=== PATIENT | male | born 1975 | race Caucasian/White ===

== ENCOUNTER 2017-09-07 16:00 | Emergency (ER) | payer OTHER ==
[2017-09-07 16:07] VITALS: BP 132/84
--- NOTE | 2017-09-07 16:43 | ER Document Report ---
HPI - HPI Patient complains to provider of: Knee injury Onset: This afternoon Onset/Duration: Persistent Pain Level: 3 Context: 42-year-old male was mowing in a ditch and felt a pop and a crack 3 times and has been unable to lift his lower leg and got knee swelling immediately. He has a history of 3 previous surgeries and a partial torn Achilles tendon that was found 1 month ago. The MRI that showed a partially torn Achilles was from 1 year ago. It was not until the injury today that he was not able to elevate his lower leg. He has an appointment on September [address] Cabrera who is in [facility] surgery group to repair or investigate the Achilles tendon. Associated Symptoms: None Exacerbated by: Denies Relieved by: Denies - ROS ROS below otherwise negative: Yes Systems Reviewed and Negative: Yes All other systems reviewed and negative Past Medical History - General Information source: Patient - Social History Smoking Status: Former Smoker Frequency of alcohol use: None Drug Abuse: None Lives with: Spouse/Significant other Family History: Reviewed & Not Pertinent Musculoskeltal Medical History: Reports Hx Musculoskeletal Trauma - Left knee Past Surgical History: Reports: Hx Orthopedic Surgery - 3 orthopedic no surgeries in the past Vertical Provider Document - CONSTITUTIONAL Agree With Documented VS: Yes Exam Limitations: No Limitations - INFECTION CONTROL TRAVEL OUTSIDE OF THE [place] IN LAST 30 DAYS: No - MUSCULOSKELETAL/EXTREMETIES Musculoskeletal/Extremeties: Tender - Anterior left knee with a defect noted at the patellar tendon. He is unable to lift his lower leg off the chair. 2+ DP. Effusion and swelling anterior left knee, Edema, Eccymosis - NEURO Level of Consciousness: Alert Motor/Sensory: No Sensory Deficit, Other - Unable to lift his left leg up off the wheelchair indicating patellar tendon dysfunction Course - Re-evaluation Re-evalutation: 09/07/17 17:[address] Montiel to consult with him, pin ticket machine operator left a message. The patient has an orthopedic appointment for preop on September [address] Cabrera in [place]. The surgery is scheduled for October 03. 09/07/17 17:43 Dr. Montiel will be happy to see the patient on Friday and call for an appointment tomorrow or he can try to see Dr. Cabrera. Dr. Montiel recommends knee immobilizer and crutches. Patient states that the hydrocodone 10 mg did not help and he does not want a prescription for any other pain medication. 09/07/17 17:43 - Vital Signs Vital signs: Temp Pulse Resp BP Pulse Ox 98.0 F 91 18 132/84 H 96 09/07/17 16:06 09/07/17 16:06 09/07/17 16:06 09/07/17 16:06 09/07/17 16:06 Procedures - Immobilization Left Knee Time completed: 18:10 Pre-Proc Neuro Vasc Exam: Normal Immobilizer type: Knee immobilizer Performed by: PCT Post-Proc Neuro Vasc Exam: Normal Alignment checked and good: Yes Discharge - Discharge Clinical Impression: Left knee effusion Patellar tendon rupture Qualifiers: Encounter type: initial encounter Laterality: left Qualified Code(s): S86.812A - Strain of other muscle(s) and tendon(s) at lower leg level, left leg, initial encounter Condition: Good Disposition: HOME, SELF-CARE Instructions: Acetaminophen, Use of Crutches ([facility]), Ibuprofen (General) ([facility]), Ice & Elevation ([facility]), Suspected Internal Knee Injury ([facility]), Knee Effusion ([facility]) , Knee Immobilizing Splint ([facility]) Additional Instructions: It is suspected that she have a full rupture of the patellar tendon at this time Keep the knee immobilizer on Do not bear weight use crutches Call for appointment with Dr. Cabrera this week or you can see Dr. Montiel on Friday I spoke with him over the phone Ibuprofen and Tylenol for pain. Prescriptions: Hydrocodone Bit/Acetaminophen [Hydrocodon-Acetaminophen 5-325] 1 each PO Q4HP PRN #15 tablet PRN Reason: Ibuprofen [Motrin 800 mg Tablet] 800 mg PO Q8HP PRN #30 tablet PRN Reason: Referrals: NELLY OLVERA PA [Primary Care Provider] - Follow up as needed
--- NOTE | 2017-09-07 16:47 | RADIOLOGY REPORT (SQ) ---
EXAM DESCRIPTION: KNEE LEFT 4 VIEW COMPLETED DATE/TIME: 09/07/2017 4:35 pm REASON FOR STUDY: inury COMPARISON: None. NUMBER OF VIEWS: Four views. TECHNIQUE: AP, lateral, and both oblique radiographic images acquired of the left knee. LIMITATIONS: Suboptimal flexion on the lateral radiograph. FINDINGS: MINERALIZATION: Normal. BONES: No acute fracture or dislocation. No worrisome bone lesions. JOINT: A small joint effusion is present. SOFT TISSUES: Prepatellar soft tissue edema is present. OTHER: No other significant finding. IMPRESSION: Small joint effusion and prepatellar soft tissue edema. No evidence of acute osseous in jury. TECHNICAL DOCUMENTATION: JOB ID: [id number] [employer]- All Rights Reserved Reading location - IP/workstation name: [email or web address]
[2017-09-07] MEDS ORDERED: HYDROCODONE/ACETAMINOPHEN 10-325 MG TABLET PO ONE (16:54)
[2017-09-07] MEDS ORDERED: ONDANSETRON 4 MG TAB.RAPDIS PO ONE (16:54)
== END 2017-09-07 18:19 | disposition home or self-care (01) ==
LOC: ER 16:00
DX: S86.812A Strain of other muscle(s) and tendon(s) at lower leg level, left leg, initial encounter (principal); M25.462 Effusion, left knee; X50.0XXA Overexertion from strenuous movement or load, initial encounter; Y93.H2 Activity, gardening and landscaping
CPT/HCPCS: 99283; 73564; L1830; S0119

== ENCOUNTER → 2017-10-10 | Outpatient (CLI) | payer OTHER ==
--- NOTE | 2017-10-12 09:54 | RADIOLOGY REPORT (SQ) ---
EXAM DESCRIPTION: MRI LT LOWER JOINT WITHOUT COMPLETED DATE/TIME: 10/10/2017 7:22 pm REASON FOR STUDY: PAIN IN LEFT KNEE M25.562 PAIN IN LEFT KNEE COMPARISON: None. TECHNIQUE: Leftknee images acquired and stored on PACS. Multiplanar images include fat sensitive se quences as T1, water sensitive sequences as FST2 or STIR, cartilage sensitive sequences as FSPD, and gradient echo sequences. LIMITATIONS: Motion. FINDINGS: JOINT AND BURSAE: No effusion. BONE CORTEX AND MARROW: No alteration of signal to suggest marrow replacement. No worrisome bone lesi ons. No occult fracture. ACL: Intact. No degeneration or ganglion cyst. PCL: Intact. MCL: Intact. No periligamentous edema or fluid. LCL: Intact. No periligamentous edema or fluid. MEDIAL MENISCUS: Attenuated. No acute tear. LATERAL MENISCUS: Attenuated. No acute tear. MEDIAL COMPARTMENT: Cartilage thinning. Small osteophytes. No subchondral edema. LATERAL COMPARTMENT: Cartilage preserved. No bone bruises or reactive marrow edema. No osteophytes. PATELLA: Patella Alice. Small avulsion fracture of the inferior pole. Rupture of the patellar tendon with a gap of roughly 2 cm. EXTENSOR MECHANISM: See above. Increased signal in the quadriceps tendon. SOFT TISSUES: Several loose bodies in the posterior joint space with blooming artifact. OTHER: No other significant finding. IMPRESSION: 1. Rupture of the patellar tendon. Small avulsion fracture inferior pole of patella. Tendinosis dis elías quadriceps tendon. 2. Synovial chondromatosis posterior joint space. 3. Mild osteoarthritis medial compartment. TECHNICAL DOCUMENTATION: JOB ID: [id number] [employer]- All Rights Reserved Reading location - IP/workstation name: [email or web address]
== END ==
LOC: RAD 16:28
PROVIDERS: ATTEND Physician Assistant Medical
DX: M25.562 Pain in left knee (principal)

== ENCOUNTER 2019-07-17 23:33 | Observation (INO) | payer OTHER ==
--- NOTE | 2019-07-17 23:59 | ER Document Report ---
ED Medical Screen (RME) - General Chief Complaint: Lower Abdominal Pain Stated Complaint: LOWER RIGHT SIDED ABDOMINAL PAIN/VOMITING Time Seen by Provider: 07/17/19 23:57 Primary Care Provider: NELLY OLVERA PA [Primary Care Provider] - Follow up as needed Mode of Arrival: Wheelchair Information source: Patient Notes: 43-year-old male presented to ED for rebound right tenderness to the abdomen. He states this started about 6 hours ago. He is afebrile at this time. He does have generalized abdominal pain much worse to the right lower quadrant. He states he does still have his appendix. He is nauseated states he is vomited one time. I have greeted and performed a rapid initial assessment of this patient. A comprehensive ED assessment and evaluation of the patient, analysis of test results and completion of medical decision making process will be conducted by an additional ED providers. TRAVEL OUTSIDE OF THE [place] IN LAST 30 DAYS: No - Related Data Allergies/Adverse Reactions: No Known Allergies Allergy (Unverified 09/07/17 16:01) Past Medical History Pulmonary Medical History: Reports: Hx Asthma Renal/ Medical History: Denies: Hx Peritoneal Dialysis GI Medical History: Reports: Hx Gastroesophageal Reflux Disease Musculoskeltal Medical History: Reports Hx Musculoskeletal Trauma - Left knee Past Surgical History: Reports: Hx Orthopedic Surgery - 3 orthopedic no surgeries in the past Doctor's Discharge - Discharge Referrals: NELLY OLVERA PA [Primary Care Provider] - Follow up as needed
[2019-07-18] MEDS ORDERED: ONDANSETRON HCL INJ/PF 4 MG/2 ML SDV IV ONE
[2019-07-18] MEDS ORDERED: MORPHINE SULFATE 10 MG/ML INJ IV ONE
[2019-07-18] MEDS ORDERED: NORMAL SALINE 1000 ML 1,000 ML IV ONE
[2019-07-18 00:39] LABS: ABSOLUTE BASOPHILS # (AUTO) 0.1 10^3/uL (0.0-0.2); ABSOLUTE EOSINOPHILS # (AUTO) 0.1 10^3/uL (0.0-0.6); ABSOLUTE LYMPHOCYTES (AUTO) 1.5 10^3/uL (0.5-4.7); ABSOLUTE MONOCYTES (AUTO) 0.9 10^3/uL (0.1-1.4); ABSOLUTE NEUT (AUTO) 13.2 10^3/uL (1.7-8.2); BASOPHILS % (AUTO) 0.5 % (0-2); EOSINOPHILS % (AUTO) 0.9 % (0-6); HEMATOCRIT 47.1 % (37.9-51.0); HEMOGLOBIN 16.3 g/dL (13.5-17.0); LYMPHOCYTES % (AUTO) 9.7 % (13-45); MEAN CORPUSCULAR HEMOGLOBIN 29.4 pg (27.0-33.4); MEAN CORPUSCULAR HGB CONC 34.6 g/dL (32.0-36.0); MEAN CORPUSCULAR VOLUME 85 fl (80-97); MONOCYTES % (AUTO) 5.5 % (3-13); PLATELET COUNT 240 10^3/uL (150-450); RED BLOOD COUNT 5.54 10^6/uL (4.35-5.55); RED CELL DISTRIBUTION WIDTH 13.2 % (11.5-14.0); SEGMENTED NEUTROPHILS % (AUTO) 83.4 % (42-78); TOTAL CELLS COUNTED % (AUTO) 100 %; WHITE BLOOD COUNT 15.8 10^3/uL (4.0-10.5)
[2019-07-18 00:56] LABS: ALBUMIN 4.8 g/dL (3.5-5.0); ALKALINE PHOSPHATASE 83 U/L (38-126); ANION GAP 6 (5-19); ASPARTATE AMINO TRANSFERASE 29 U/L (17-59); BILIRUBIN,TOTAL 0.5 mg/dL (0.2-1.3); BLOOD UREA NITROGEN 18 mg/dL (7-20); CALCIUM 10.4 mg/dL (8.4-10.2); CARBON DIOXIDE 30 mmol/L (22-30); CHLORIDE 101 mmol/L (98-107); GLUCOSE 122 mg/dL (75-110); POTASSIUM 4.3 mmol/L (3.6-5.0); TOTAL PROTEIN 7.8 g/dL (6.3-8.2)
[2019-07-18] MEDS ORDERED: HYDROMORPHONE HCL INJ/PF 2 MG/ML AMPULE IV ONE (01:05)
--- NOTE | 2019-07-18 01:11 | ER Document Report ---
Entered by DEEDEE MOTT SCRIBE 07/18/19 0100 Acting as scribe for:SADIA LEWIS IV, MD ED GI/ - General Chief Complaint: Abdominal Pain Stated Complaint: LOWER RIGHT SIDED ABDOMINAL PAIN/VOMITING Time Seen by Provider: 07/17/19 23:57 Primary Care Provider: NELLY OLVERA PA [Primary Care Provider] - Follow up as needed Mode of Arrival: Wheelchair Information source: Patient Notes: This 43 year old male patient presents to the ED today with complaints of RLQ abdominal pain that started around 1900 last evening. Patient states that after eating dinner, he felt the pain in his RLQ and that it radiated to his back. He reports a past medical history of kidney stones, but states that this feels different. He notes nausea and x1 episode of vomiting. Denies diarrhea. TRAVEL OUTSIDE OF THE [place] IN LAST 30 DAYS: No - Related Data Allergies/Adverse Reactions: No Known Allergies Allergy (Unverified 09/07/17 16:01) Home Medications: trazodone Past Medical History - General Information source: Patient - Social History Smoking Status: Never Smoker Cigarette use (# per day): No Chew tobacco use (# tins/day): No Smoking Education Provided: No Frequency of alcohol use: None Drug Abuse: None Lives with: Spouse/Significant other Family History: Reviewed & Not Pertinent Patient has suicidal ideation: No Patient has homicidal ideation: No Pulmonary Medical History: Reports: Hx Asthma Renal/ Medical History: Reports: Hx Kidney Stones GI Medical History: Reports: Hx Gastroesophageal Reflux Disease Musculoskeletal Medical History: Reports Hx Musculoskeletal Trauma - Left knee Past Surgical History: Reports: Hx Cholecystectomy, Hx Orthopedic Surgery - x3 Review of Systems - Review of Systems Constitutional: No symptoms reported EENT: No symptoms reported Cardiovascular: No symptoms reported Respiratory: No symptoms reported Gastrointestinal: See HPI, Abdominal pain, Nausea, Vomiting. denies: Diarrhea Genitourinary: No symptoms reported Male Genitourinary: No symptoms reported Musculoskeletal: See HPI, Back pain Skin: No symptoms reported Hematologic/Lymphatic: No symptoms reported Neurological/Psychological: No symptoms reported -: Yes All other systems reviewed and negative Physical Exam - Vital signs Vitals: Temp 98.6 F 07/17/19 23:53 Interpretation: Normal - General General appearance: Alert In distress: None - HEENT Head: Normocephalic, Atraumatic Eyes: Normal Pupils: PERRL - Respiratory Respiratory status: No respiratory distress Chest status: Nontender Breath sounds: Normal Chest palpation: Normal - Cardiovascular Rhythm: Regular Heart sounds: Normal auscultation Murmur: No Friction rub: No Gallop: None auscultated - Abdominal Inspection: Normal Distension: No distension Bowel sounds: Hypoactive Tenderness: Tender - Tenderness to palpation in RLQ and LLQ Organomegaly: No organomegaly - Back Back: Normal, Nontender. No: CVA tenderness - bilaterally - Extremities General upper extremity: Normal inspection General lower extremity: Normal inspection - Neurological Neuro grossly intact: Yes Orientation: AAOx4 - Psychological Associated symptoms: Normal affect, Normal mood - Skin Skin Temperature: Warm Skin Moisture: Dry Skin Color: Normal Course - Re-evaluation Re-evalutation: 07/18/19 01:49 Results of ED MSE discussed with patient. Diagnosis of appendicitis, need for admission and surgical treatment discussed with patient. All questions were answered. - Vital Signs Vital signs: Temp Pulse Resp BP Pulse Ox 98.6 F 62 18 164/96 H 98 07/17/19 23:58 07/17/19 23:58 07/17/19 23:58 07/17/19 23:58 07/17/19 23:58 - Laboratory Result Diagrams: 07/18/19 00:30 07/18/19 00:30 Laboratory results interpreted by me: 07/18/19 07/18/19 00:30 00:30 WBC 15.8 H Lymph % (Auto) 9.7 L Absolute Neuts (auto) 13.2 H Seg Neutrophils % 83.4 H Sodium 136.8 L Glucose 122 H Calcium 10.4 H - Diagnostic Test Radiology reviewed: Reports reviewed - Consults dr. reis Time consulted: 02:20 - dr reis agreed to see pt in ed Reason for consultation: 07/18/19 03:11 acute appendicitis Consulted provider: will come to ER Discharge - Discharge Clinical Impression: Acute appendicitis Qualifiers: Acute appendicitis type: unspecified acute appendicitis type Qualified Code(s): K35.80 - Unspecified acute appendicitis Condition: Good Disposition: ADMITTED OBSERVATION Admitting Provider: Surgicalist - dr reis Unit Admitted: Surgical Floor Referrals: NELLY OLVERA PA [Primary Care Provider] - Follow up as needed I personally performed the services described in the documentation, reviewed and edited the documentation which was dictated to the scribe in my presence, and it accurately records my words and actions.
--- NOTE | 2019-07-18 01:26 | RADIOLOGY REPORT (SQ) ---
CT ABDOMEN AND PELVIS WITH INTRAVENOUS CONTRAST: 07/18/2019 12:21 AM CDT HISTORY: 43-year old with right lower quadrant abdominal pain. COMPARISON: None available TECHNIQUE: Axial contiguous images were obtained from the lung bases to the proximal femurs with intravenous intravenous contrast administered. Sagittal and coronal reconstructions were also obtained and reviewed. This exam was performed according to our departmental dose-optimization program, which includes automated exposure control, adjustment of the mA and/or KV according to the patient's size and/or use of iterative reconstruction technique. FINDINGS: No focal consolidative airspace opacities are seen. No discrete pleural effusion is seen. The visualized hepatic parenchyma is unremarkable. No focal enhancing lesion is seen. The gallbladder is surgically absent. The spleen, pancreas, and adrenals are normal in size and contour. The kidneys demonstrate no evidence of hydronephrosis. Bladder is minimally distended, but grossly appears unremarkable. The stomach is not well distended. The small bowel loops appear unremarkable. No pericolonic inflammatory stranding is seen. The appendix is prominent measures at least 8 mm with adjacent inflammatory stranding. This could represent evidence of acute appendicitis. There is no evidence of pneumoperitoneum or free fluid. The aorta and IVC appear normal in size. No significantly enlarged lymph nodes are seen in the abdomen or pelvis. Review of the bone show no evidence of any suspicious lytic or blastic lesions. IMPRESSION: The appendix is enlarged with adjacent stranding, which can be seen with acute appendicitis. The terminal ileum is also seen nearby.
[2019-07-18] MEDS ORDERED: PIPERACILLIN/TAZOBACTAM 3.375 GM VIAL IV ONE (01:47)
[2019-07-18] MEDS ORDERED: ONDANSETRON HCL INJ/PF 4 MG/2 ML SDV IV PRN ×2 (02:26→09:01)
[2019-07-18] MEDS ORDERED: MORPHINE SULFATE 10 MG/ML INJ IV PRN (02:26)
[2019-07-18] MEDS ORDERED: DEXTROSE 5%-LACTATED RINGERS 1,000 ML IV PRN (02:26)
[2019-07-18] MEDS ORDERED: PIPERACILLIN/TAZOBACTAM 3.375 GM VIAL IV PRN (03:00)
[2019-07-18] MEDS: PIPERACILLIN SODIUM/TAZOBACTAM 3.375 GM in NORMAL SALINE 100 ML IV SCH ×2 (03:22→08:50)
--- NOTE | 2019-07-18 04:02 | PDOC H&P ---
History of Present Illness Admission Date/PCP: 07/18/19 03:30 JOSEPH ROMERO Patient complains of: Severe right lower quadrant pain History of Present Illness: SHILPI OREILLY is a 43 year old male with a 1 day history of sharp, stabbing, severe right lower quadrant pain that began in the periumbilical position, and moved to the right lower quadrant. His pain was rated 8 out of 10 at its worst. Narcotic pain medications make it better, movement and palpation made it worse. The patient denies fevers or chills. He does report some nausea, without vomi ting. His pain does not radiate. At present, the patient denies chest pain, shortness of breath, headache, blurry vision, dizziness, orthostasis, rash, pruritus. Past Medical History Pulmonary Medical History: Reports: Asthma GI Medical History: Reports: Gastroesophageal Reflux Disease Past Surgical History Past Surgical History: Reports: Cholecystectomy, Orthopedic Surgery - x3 Social History Lives with: Spouse/Significant other Smoking Status: Never Smoker Electronic Cigarette use?: No Family History Family History: Reviewed & Not Pertinent Parental Family History Reviewed: Yes Children Family History Reviewed: Yes Sibling(s) Family History Reviewed.: Yes Medication/Allergy Home Medications: Hydrocodone Bit/Acetaminophen [Hydrocodon-Acetaminophen 5-325] 1 each PO Q4HP PRN #15 tablet 09/07/17 Ibuprofen [Motrin 800 mg Tablet] 800 mg PO Q8HP PRN #30 tablet 09/07/17 Allergies/Adverse Reactions: No Known Allergies Allergy (Unverified 09/07/17 16:01) Review of Systems Constitutional: ABSENT: anorexia, chills, fatigue, fever(s), weakness Eyes: ABSENT: visual disturbances Ears: ABSENT: hearing changes Nose, Mouth, and Throat: ABSENT: sore throat Cardiovascular: ABSENT: chest pain Respiratory: ABSENT: cough, dyspnea Genitourinary: ABSENT: dysuria Musculoskeletal: ABSENT: back pain Integumentary: ABSENT: pruritus, rash Neurological: ABSENT: confusion, convulsions, dizziness Psychiatric: ABSENT: anxiety, depression Endocrine: ABSENT: cold intolerance, heat intolerance Hematologic/Lymphatic: ABSENT: easy bleeding, easy bruising Physical Exam Vital Signs: Temp Pulse Resp BP Pulse Ox 98.6 F 62 17 135/89 H 95 07/17/19 23:58 07/17/19 23:58 07/18/19 03:01 07/18/19 03:01 07/18/19 03:01 Intake & Output 07/16/19 07/17/19 07/18/19 06:59 06:59 06:59 Intake Total 1000 Balance 1000 Weight 95.254 kg General appearance: PRESENT: no acute distress, cooperative Head exam: PRESENT: atraumatic, normocephalic Eye exam: ABSENT: scleral icterus Mouth exam: PRESENT: moist, neck supple Neck exam: ABSENT: meningismus, tenderness, thyromegaly, tracheal deviation Respiratory exam: PRESENT: unlabored. ABSENT: chest wall tenderness, tachypnea, wheezes Cardiovascular exam: ABSENT: tachycardia Vascular exam: PRESENT: normal capillary refill GI/Abdominal exam: PRESENT: guarding - Right lower quadrant, soft, tenderness - Right lower quadrant. ABSENT: distended Rectal exam: PRESENT: deferred Extremities exam: ABSENT: clubbing Musculoskeletal exam: ABSENT: deformity Neurological exam: PRESENT: alert, awake, oriented to person, oriented to place, oriented to time, oriented to situation, CN II-XII grossly intact. ABSENT: mot or sensory deficit Psychiatric exam: ABSENT: agitated, anxious, depressed Focused psych exam: ABSENT: delusional Skin exam: ABSENT: cyanosis, erythema, jaundice Results Laboratory Results: 07/18/19 00:30 07/18/19 00:30 07/18/19 07/18/19 00:30 00:30 WBC 15.8 H RBC 5.54 Hgb 16.3 Hct 47.1 MCV 85 MCH 29.4 MCHC 34.6 RDW 13.2 Plt Count 240 Seg Neutrophils % 83.4 H Sodium 136.8 L Potassium 4.3 Chloride 101 Carbon Dioxide 30 Anion Gap 6 BUN 18 Creatinine 1.11 Est GFR ( Amer) > 60 Glucose 122 H Calcium 10.4 H Total Bilirubin 0.5 AST 29 Alkaline Phosphatase 83 Total Protein 7.8 Albumin 4.8 Lipase 64.1 Impressions: Abdomen/Pelvis CT 07/17/19 23:59 IMPRESSION: The appendix is enlarged with adjacent stranding, which can be seen with acute appendicitis. The terminal ileum is also seen nearby. Assessment & Plan - Diagnosis (1) Acute appendicitis Qualifiers: Acute appendicitis type: unspecified acute appendicitis type Qualified Code(s): K35.80 - Unspecified acute appendicitis Is this a current diagnosis for this admission?: Yes - Plan Summary Plan Summary: This is a 43-year-old male with a history, physical exam, laboratory findings, and radiologic studies consistent with acute appendicitis. I have reviewed the patient's CT scan personally. He does have thickening of the appendix with a mild amount of inflammatory stranding. He has an elevated white blood cell count, and pain in the right lower quadrant. I have discussed treatment options with the patient at length. I have offered him surgical intervention for his acute appendicitis. The patient has agreed. Risks/benefits discussed, informed consent obtained, and all questions answered.
[2019-07-18 07:37] LABS: APPEARANCE,URINE CLEAR; BILIRUBIN,URINE NEGATIVE (NEGATIVE); COLOR,URINE YELLOW; GLUCOSE, URINE NEGATIVE (NEGATIVE); KETONES,URINE NEGATIVE (NEGATIVE); LEUKOCYTE ESTERASE,URINE NEGATIVE (NEGATIVE); NITRITE,URINE NEGATIVE (NEGATIVE); PROTEIN,URINE NEGATIVE (NEGATIVE); UROBILINOGEN,URINE NEGATIVE mg/dL (<2.0)
[2019-07-18] MEDS: KETOROLAC TROMETHAMINE INJ/PF 30 MG/1 ML SDV IV SCH ×2 (07:49→14:46)
[2019-07-18] MEDS ORDERED: PROPOFOL INJ 200 MG/20 ML VIAL IV ONE (08:10)
[2019-07-18] MEDS ORDERED: HYDROMORPHONE HCL INJ/PF 2 MG/ML AMPULE ONE (08:10)
[2019-07-18] MEDS ORDERED: FENTANYL CITRATE INJ/PF 100 MCG/2 ML AMPUL ONE (08:10)
[2019-07-18] MEDS ORDERED: MIDAZOLAM 2 MG/2 ML INJ ONE (08:10)
[2019-07-18] MEDS ORDERED: BUPIVACAINE HCL 0.25 % INJ/PF (2.5 MG/1 ML) 30 ML VIAL ONE (08:43)
[2019-07-18] MEDS ORDERED: FENTANYL CITRATE INJ/PF 100 MCG/2 ML AMPUL IV PRN ×3 (09:01)
[2019-07-18] MEDS ORDERED: MEPERIDINE HCL/PF INJ 25 MG/1 ML DISP.SYRIN IV PRN (09:01)
[2019-07-18] MEDS ORDERED: OXYCODONE-ACETAMINOPHEN 5-325 MG TABLET PO PRN ×2 (09:01)
[2019-07-18] MEDS ORDERED: PROMETHAZINE HCL INJ 25 MG/1 ML VIAL IV PRN ×2 (09:01)
[2019-07-18] MEDS ORDERED: DIPHENHYDRAMINE HCL 50 MG/ML VIAL IV PRN (09:01)
[2019-07-18] MEDS ORDERED: HYDROCODONE/ACETAMINOPHEN 10-325 MG TABLET PO PRN (09:34)
--- NOTE | 2019-07-18 09:39 | Operative Report ---
Nonrecallable Operative Report DATE OF SURGERY: 07/18/19 PREOPERATIVE DIAGNOSIS: Acute appendicitis POSTOPERATIVE DIAGNOSIS: Acute, nonperforated, retrocecal appendicitis OPERATION: laparoscopic appendectomy SURGEON: ROGERS GALVAN ANESTHESIA: GA TISSUE REMOVED OR ALTERED: Appendix COMPLICATIONS: None apparent ESTIMATED BLOOD LOSS: Minimal PROCEDURE: Drains/implants: None. Procedure in detail: After informed consent was obtained, the patient was brought into the operating room and laid in the supine position. The area of the abdomen was prepped and draped in a normal sterile fashion. An epigastric incision was created with a 15 blade scalpel. Dissection was carried through the subcutaneous tissues using blunt dissection. The linea alba fascia was incised sharply, the abdomen was entered sharply. The balloon trocar was inserted, and pneumoperitoneum was achieved. A suprapubic 5 mm trocar was then placed under direct laparoscopic visualization. Another left lower quadrant 5 mm trocar was placed in similar fashion. Atraumatic graspers were placed through the 5 mm ports. The cecum was identified. The appendix appeared to be retrocecal. Secondary to this the white line of Toldt was partially mobilized in order to rotate the cecum medially. The appendix was then brought into view. It was injected and inflamed, however was not perforated. The appendix was retracted anteriorly. The mesoappendix was taken down using the harmonic scalpel. PDS Endoloops were used x2 to secure the base of the appendix. The appendix was then amputated, and placed into an Endo Catch bag. The camera was reinserted. The right lower quadrant was inspected. It was found to be hemostatic. A small amount of blood was suctioned from the right lower quadrant. No irrigation was used. The 5 mm trochars were removed under direct laparoscopic visualization. The epigastric 12 mm trocar was removed, and pneumoperitoneum was relieved. The epigastric fascia was closed using 0 Vicryl suture in [id number] fashion. The overlying skin was closed using 4-0 Vicryl Rapide suture in subcuticular fashion. Dressings were placed, and the procedure was concluded. All sponge, instrument, and needle counts were correct x2. Condition: Stable.
[2019-07-18] MEDS ORDERED: ONDANSETRON HCL INJ/PF 4 MG/2 ML SDV ONE (10:00)
[2019-07-18] MEDS ORDERED: NEOSTIGMINE METHYLSULFATE 10 MG/10 ML VIAL ONE (10:00)
[2019-07-18] MEDS ORDERED: ROCURONIUM BROMIDE INJ 50 MG/5 ML VIAL IV ONE (10:00)
[2019-07-18] MEDS ORDERED: KETOROLAC TROMETHAMINE 60 MG/2 ML SDV ONE (10:00)
[2019-07-18] MEDS ORDERED: LIDOCAINE 2% INJ-PF (20 MG/ML) 2 ML AMPUL ONE (10:00)
[2019-07-18] MEDS ORDERED: GLYCOPYRROLATE 1 MG/5 ML VIAL ONE (10:00)
[2019-07-18] MEDS ORDERED: METOCLOPRAMIDE HCL INJ/PF 10 MG/2 ML SDV ONE (10:00)
[2019-07-18] MEDS ORDERED: DEXAMETHASONE SOD PHOSPHATE INJ 4 MG/1 ML VIAL ONE (10:00)
[2019-07-18] MEDS ORDERED: FAMOTIDINE INJ/PF 20 MG/2 ML SDV IV SCH (10:00)
--- NOTE | 2019-07-18 19:54 | PDOC DISCHARGE SUMMARY ---
General - Admit/Disc Date/PCP Admission Date/Primary Care Provider: 07/18/19 03:30 JOSEPH ROMERO Discharge Date: 07/18/19 - Discharge Diagnosis Final Diagnosis: acute appendicitis - Assessment Summary: This is a 43-year-old male admitted with acute appendicitis. He was taken to the operating room for definitive surgical treatment. He underwent laparoscopic appendectomy. Surgery was successful. The patient was taken to the floor in stable condition. He began tolerating a diet and ambulating. By the evening of 07/18/2019 it was felt that he reached maximal hospital benefit, and was fit for discharge. - Additional Information Resuscitation Status: Full Code Discharge Diet: As Tolerated Discharge Activity: No Lifting Over 10 Pounds, No Lifting/Push/Pulling Referrals: NELLY OLVERA PA [Primary Care Provider] - Follow up as needed Prescriptions: Hydrocodone/Acetaminophen [Higgins 10-325 mg Tablet] 1 tab PO Q6HP PRN #14 tablet PRN Reason: For Pain Home Medications: Ibuprofen [Motrin 800 mg Tablet] 800 mg PO Q8HP PRN #30 tablet 09/07/17 Hydrocodone/Acetaminophen [Higgins 10-325 mg Tablet] 1 tab PO Q6HP PRN #14 tablet 07/18/19 Additional Information: Discharge home. Diet as tolerated. Activity: No lifting greater than 10 pounds x 2 weeks. Follow-up with me in 7 to 10 days at [facility]. Okay to shower starting Friday. History of Present Illiness History of Present Illness: SHILPI OREILLY is a 43 year old male with a 1 day history of sharp, stabbing, severe right lower quadrant pain that began in the periumbilical position, and moved to the right lower quadrant. His pain was rated 8 out of 10 at its worst. Narcotic pain medications make it better, movement and palpation made it worse. The patient denies fevers or chills. He does report some nausea, without vomiting. His pain does not radiate. At present, the patient denies chest pain, shortness of breath, headache, blurry vision, dizziness, orthostasis, rash, pruritus. Physical Exam Vital Signs: Temp Pulse Resp BP Pulse Ox 97.7 F 57 L 16 116/60 98 07/18/19 17:00 07/18/19 17:00 07/18/19 17:00 07/18/19 17:00 07/18/19 17:00 Intake & Output 07/17/19 07/18/19 07/19/19 06:59 06:59 06:59 Intake Total 1000 3510 Output Total 50 Balance 1000 3460 Weight 99.7 kg Results Laboratory Results: WBC 15.8 10^3/uL (4.0-10.5) H 07/18/19 00:30 RBC 5.54 10^6/uL (4.35-5.55) 07/18/19 00:30 Hgb 16.3 g/dL (13.5-17.0) 07/18/19 00:30 Hct 47.1 % (37.9-51.0) 07/18/19 00:30 MCV 85 fl (80-97) 07/18/19 00:30 MCH 29.4 pg (27.0-33.4) 07/18/19 00:30 MCHC 34.6 g/dL (32.0-36.0) 07/18/19 00:30 RDW 13.2 % (11.5-14.0) 07/18/19 00:30 Plt Count 240 10^3/uL (150-450) 07/18/19 00:30 Lymph % (Auto) 9.7 % (13-45) L 07/18/19 00:30 Waldo % (Auto) 5.5 % (3-13) 07/18/19 00:30 Eos % (Auto) 0.9 % (0-6) 07/18/19 00:30 Baso % (Auto) 0.5 % (0-2) 07/18/19 00:30 Absolute Neuts (auto) 13.2 10^3/uL (1.7-8.2) H 07/18/19 00:30 Absolute Lymphs (auto) 1.5 10^3/uL (0.5-4.7) 07/18/19 00:30 Absolute Monos (auto) 0.9 10^3/uL (0.1-1.4) 07/18/19 00:30 Absolute Eos (auto) 0.1 10^3/uL (0.0-0.6) 07/18/19 00:30 Absolute Basos (auto) 0.1 10^3/uL (0.0-0.2) 07/18/19 00:30 Seg Neutrophils % 83.4 % (42-78) H 07/18/19 00:30 Sodium 136.8 mmol/L (137-145) L 07/18/19 00:30 Potassium 4.3 mmol/L (3.6-5.0) 07/18/19 00:30 Chloride 101 mmol/L (98-107) 07/18/19 00:30 Carbon Dioxide 30 mmol/L (22-30) 07/18/19 00:30 Anion Gap 6 (5-19) 07/18/19 00:30 BUN 18 mg/dL (7-20) 07/18/19 00:30 Creatinine 1.11 mg/dL (0.52-1.25) 07/18/19 00:30 Est GFR ( Amer) > 60 (>60) 07/18/19 00:30 Est GFR (MDRD) Non-Af > 60 (>60) 07/18/19 00:30 Glucose 122 mg/dL (75-110) H 07/18/19 00:30 Calcium 10.4 mg/dL (8.4-10.2) H 07/18/19 00:30 Total Bilirubin 0.5 mg/dL (0.2-1.3) 07/18/19 00:30 Direct Bilirubin 0.0 mg/dL (0.0-0.4) 07/18/19 00:30 Neonat Total Bilirubin Not Reportable 07/18/19 00:30 Neonat Direct Bilirubin Not Reportable 07/18/19 00:30 Neonat Indirect Bili Not Reportable 07/18/19 00:30 AST 29 U/L (17-59) 07/18/19 00:30 ALT 38 U/L (<50) 07/18/19 00:30 Alkaline Phosphatase 83 U/L (38-126) 07/18/19 00:30 Total Protein 7.8 g/dL (6.3-8.2) 07/18/19 00:30 Albumin 4.8 g/dL (3.5-5.0) 07/18/19 00:30 Lipase 64.1 U/L (23-300) 07/18/19 00:30 Urine Color YELLOW 07/18/19 07:26 Urine Appearance CLEAR 07/18/19 07:26 Urine pH 5.0 (5.0-9.0) 07/18/19 07:26 Ur Specific [place] 1.050 07/18/19 07:26 Urine Protein NEGATIVE mg/dL (NEGATIVE) 07/18/19 07:26 Urine Glucose (UA) NEGATIVE mg/dL (NEGATIVE) 07/18/19 07:26 Urine Ketones NEGATIVE mg/dL (NEGATIVE) 07/18/19 07:26 Urine Blood NEGATIVE (NEGATIVE) 07/18/19 07:26 Urine Nitrite NEGATIVE (NEGATIVE) 07/18/19 07:26 Urine Bilirubin NEGATIVE (NEGATIVE) 07/18/19 07:26 Urine Urobilinogen NEGATIVE mg/dL (<2.0) 07/18/19 07:26 Ur Leukocyte Esterase NEGATIVE (NEGATIVE) 07/18/19 07:26 Urine WBC (Auto) 3 /HPF 07/18/19 07:26 Urine RBC (Auto) 1 /HPF 07/18/19 07:26 Urine Mucus (Auto) RARE /LPF 07/18/19 07:26 Urine Ascorbic Acid NEGATIVE (NEGATIVE) 07/18/19 07:26 SARS-CoV-2 (PCR) NEGATIVE (NEGATIVE) 07/18/19 02:41 Impressions: Abdomen/Pelvis CT 07/17/19 23:59 IMPRESSION: The appendix is enlarged with adjacent stranding, which can be seen with acute appendicitis. The terminal ileum is also seen nearby.
[2019-07-18 21:11] VITALS: BP 109/66
== END 2019-07-18 21:00 | disposition home or self-care (01) ==
LOC: ER 23:33 → EH 07-18 03:30 → 4S 07-18 04:35
PROVIDERS: ATTEND Surgery
DX: K35.30 Acute appendicitis with localized peritonitis, without perforation or gangrene (principal); M54.9 Dorsalgia, unspecified; Z90.49 Acquired absence of other specified parts of digestive tract; Z11.59 Encounter for screening for other viral diseases; Z87.442 Personal history of urinary calculi; Z87.19 Personal history of other diseases of the digestive system
CPT/HCPCS: 44970; 99285; 96361; 96375; 96365; 36415; 83690; 85025; 87635; 80053; 81001; 88304 ×2; 74177; 99140; 00840; G0378 ×2; J2250; J3490 ×3; J1100; J1885; J2765; J2270; J2710; J1170; J2405; J7121; J7050; J7030; J2704; J2543; 840; J3010